=== PATIENT | female | born 1970 | race Two or more races ===

== ENCOUNTER 2021-06-29 09:05 | Inpatient (IN) | payer OTHER ==
[~2021-06-29] VITALS: Ht 157.5 cm; Wt 80.3 kg
--- NOTE | 2021-06-29 09:09 | NUR ---
TO ER BED 3, C/O CHEST PAIN SINCE LAST NIGHT, NOW IT'S MORE OF A TIGHTNESS PER PATIENT DESCRIPTION, NO SOB COMPLAIN, AAOX3, BREATHING EVEN AND NON LABORED, CONNECTED TO MONITOR
[2021-06-29 09:36] LABS: BASOPHILS % (AUTO) 0.6 % (0.0-2.0); EOSINOPHILS % (AUTO) 2.4 % (0.0-6.0); HEMATOCRIT 40 % (33-45); HEMOGLOBIN 13.5 g/dL (11.5-14.8); LYMPHOCYTES # (AUTO) 1.7 K/uL (0.8-4.8); LYMPHOCYTES % (AUTO) 30.7 % (20.0-44.0); MEAN CORPUSCULAR HGB CONC 34 g/dl (31.0-36.0); MEAN CORPUSCULAR VOLUME 90 fL (82-100); MONOCYTES # (AUTO) 0.4 K/uL (0.1-1.30); MONOCYTES % (AUTO) 6.4 % (2.0-12.0); NEUTROPHILS # (AUTO) 3.3 K/uL (1.8-8.9); NEUTROPHILS % (AUTO) 59.9 % (43.0-81.0); PLATELET COUNT (AUTO) 275 K/uL (150-450); RED BLOOD CELL COUNT(AUTO) 4.42 MIL/uL (4.0-5.2); WHITE BLOOD COUNT (AUTO) 5.5 K/uL (4.3-11.0)
--- NOTE | 2021-06-29 09:37 | NUR ---
MOVE SHEET SUBMITTED AND CALLED FOR TELE BED.
--- NOTE | 2021-06-29 09:37 | NUR ---
MOVE SHEET SUBMITTED AND CALLED FOR TELE BED.
[2021-06-29 10:07] LABS: CALCIUM, SERUM 10.4 mg/dL (8.5-10.1); CARBON DIOXIDE 26 mmol/L (21-32); CHLORIDE 106 mmol/L (98-107); CREATININE 0.9 mg/dL (0.6-1.3); GLUCOSE 142 mg/dL (74-106); POTASSIUM 3.7 mmol/L (3.5-5.1); SODIUM SERUM 141 mmol/L (136-145); UREA NITROGEN, BLOOD 15 mg/dL (7-18)
[2021-06-29 10:19] LABS: ALANINE AMINOTRANSFERASE 63 U/L (12-78); ALBUMIN 3.6 g/dL (3.4-5.0); ALKALINE PHOSPHATASE 85 U/L (46-116); ASPARTATE AMINOTRANSFERASE 32 U/L (15-37); BILIRUBIN,DIRECT 0.1 mg/dL (0.0-0.2); BILIRUBIN,TOTAL 0.3 mg/dL (0.2-1.0); TOTAL PROTEIN, SERUM 7.5 g/dL (6.4-8.2)
--- NOTE | 2021-06-29 11:48 | NUR ---
Polly boo in [facility] - 06/29/21 at 1155 by AMANDEEP ROOM [id number]
--- NOTE | 2021-06-29 11:48 | NUR ---
Polly boo in [facility] - 06/29/21 at 1155 by AMANDEEP ROOM [id number]
--- NOTE | 2021-06-29 11:55 | NUR ---
WAITING FOR BED
--- NOTE | 2021-06-29 11:55 | NUR ---
WAITING FOR BED
--- NOTE | 2021-06-29 12:52 | NUR ---
PT LAYING IN BED. AAOX4, BREATHING EVEN AND UNLABORED. WILL CONTINUE TO MONITOR.
--- NOTE | 2021-06-29 12:52 | NUR ---
PT LAYING IN BED. AAOX4, BREATHING EVEN AND UNLABORED. WILL CONTINUE TO MONITOR.
[2021-06-29] MEDS ORDERED: MAGNESIUM HYDROXIDE 30 ML UDC PO PRN (13:30)
[2021-06-29] MEDS ORDERED: ASPIRIN EC 81 MG TABLET.DR PO SCH (13:30)
[2021-06-29] MEDS ORDERED: MORPHINE SULFATE INJ 2 MG/ML DISP.SYRIN IV PRN (13:30)
[2021-06-29] MEDS ORDERED: NITROGLYCERIN 0.4 MG/TAB BOTTLE SL PRN (13:30)
[2021-06-29] MEDS ORDERED: ONDANSETRON HCL/PF 4 MG/2 ML VIAL IVP PRN (13:30)
[2021-06-29] MEDS ORDERED: HYDROCODONE/APAP 5/325MG TABLET PO PRN (13:30)
[2021-06-29] MEDS ORDERED: MAG HYDROX/AL HYDROX/SIMETH 30 ML UDC PO PRN (13:30)
[2021-06-29] MEDS ORDERED: ACETAMINOPHEN 325 MG TABLET PO PRN (13:30)
--- NOTE | 2021-06-29 13:41 | NUR ---
PT LYING IN BED, VS STABLE, WILL CONTINUE TO MONITOR
--- NOTE | 2021-06-29 13:41 | NUR ---
PT LYING IN BED, VS STABLE, WILL CONTINUE TO MONITOR
[2021-06-29] MEDS ORDERED: ASPIRIN 81 MG TAB.CHEW ONE (14:07)
[2021-06-29] MEDS: ASPIRIN 81 MG TAB.CHEW PO SCH (14:11)
--- NOTE | 2021-06-29 15:12 | NUR ---
PT LAYIGN IN BED, AAOX4, BREATHING EVEN AND UNLABORED. NO NEW COMPLAINTS. VS STABLE
--- NOTE | 2021-06-29 15:12 | NUR ---
PT LAYIGN IN BED, AAOX4, BREATHING EVEN AND UNLABORED. NO NEW COMPLAINTS. VS STABLE
--- NOTE | 2021-06-29 17:08 | NUR ---
PT AMBULATED TO RESTROOM
--- NOTE | 2021-06-29 17:08 | NUR ---
PT AMBULATED TO RESTROOM
--- NOTE | 2021-06-29 17:12 | NUR ---
PT RETURNED TO BED FROM RESTROOM. VS STABLE
--- NOTE | 2021-06-29 17:12 | NUR ---
PT RETURNED TO BED FROM RESTROOM. VS STABLE
[2021-06-29] MEDS ORDERED: METOPROLOL TARTRATE 50 MG TABLET ONE (17:52)
[2021-06-29] MEDS: METOPROLOL TARTRATE 50 MG TABLET PO SCH (18:02)
--- NOTE | 2021-06-29 19:09 | NUR ---
VS STABLE, NO PRESENT COMPLAINTS
--- NOTE | 2021-06-29 19:09 | NUR ---
VS STABLE, NO PRESENT COMPLAINTS
--- NOTE | 2021-06-29 19:48 | NUR ---
ROOM: [facility] TELE
--- NOTE | 2021-06-29 19:48 | NUR ---
ROOM: [facility] TELE
--- NOTE | 2021-06-29 20:54 | NUR ---
REPORT GIVEN TO BRIAN
--- NOTE | 2021-06-29 20:54 | NUR ---
REPORT GIVEN TO BRIAN
[2021-06-29 21:00] VITALS: BP 138/78
--- NOTE | 2021-06-29 21:00 | NUR ---
TECHNICAL COORDINATORTRAVELING SALES REPRESENTATIVE NOTES RECEIVED ON BED A/O X4,BREATHING REGULAR,NOT IN ANY FORM OF DISTRESS,DX-CHEST PAIN,WITH KNOWN ALLERGY TO PENICILLIN,WITH LEFT ARM SALINE LOCK INTACT AND PATENT.VACCINATED WITH COVID TWICE,NO BOOSTER YET.CHEST PAIN DULL AT THE MOMENT,NO SKIN ISSUES,CALL LIGHT IN REACH,NEEDS ANTICIPATED
--- NOTE | 2021-06-29 21:00 | NUR ---
CAM MAKERMARKETING REPS SPORTS AND ENTERTAINMENT NOTES RECEIVED ON BED A/O X4,BREATHING REGULAR,NOT IN ANY FORM OF DISTRESS,DX-CHEST PAIN,WITH KNOWN ALLERGY TO PENICILLIN,WITH LEFT ARM SALINE LOCK INTACT AND PATENT.VACCINATED WITH COVID TWICE,NO BOOSTER YET.CHEST PAIN DULL AT THE MOMENT,NO SKIN ISSUES,CALL LIGHT IN REACH,NEEDS ANTICIPATED
--- NOTE | 2021-06-29 21:06 | NUR ---
PT TRANSPORTED TO ROOM 314 ON TIRE CENTER SUPERVISOR PER ACLS PROTOCOL
--- NOTE | 2021-06-29 21:06 | NUR ---
PT TRANSPORTED TO ROOM 314 ON HOME CARE ASSOCIATE PER ACLS PROTOCOL
[2021-06-29] MEDS ORDERED: ZOLPIDEM TARTRATE 5 MG TABLET PO PRN (22:00)
--- NOTE | 2021-06-29 22:53 | NUR ---
DATA PROCESSING AUDITOR NOTES C/O HEADACHE,TYLENOL 650MG PO GIVEN PER PATIENT REQUEST.
--- NOTE | 2021-06-29 22:53 | NUR ---
MIXED CROP AND LIVESTOCK FARMER NOTES C/O HEADACHE,TYLENOL 650MG PO GIVEN PER PATIENT REQUEST.
[2021-06-30] VITALS: BP 113/66
[2021-06-30] MEDS: METOPROLOL TARTRATE 50 MG TABLET PO SCH ×3 (00:25→13:05)
[2021-06-30 05:53] LABS: BASOPHILS % (AUTO) 0.7 % (0.0-2.0); EOSINOPHILS % (AUTO) 3.4 % (0.0-6.0); HEMATOCRIT 39 % (33-45); HEMOGLOBIN 13.2 g/dL (11.5-14.8); LYMPHOCYTES # (AUTO) 2.2 K/uL (0.8-4.8); LYMPHOCYTES % (AUTO) 36.3 % (20.0-44.0); MEAN CORPUSCULAR HGB CONC 34 g/dl (31.0-36.0); MEAN CORPUSCULAR VOLUME 90 fL (82-100); MONOCYTES # (AUTO) 0.5 K/uL (0.1-1.30); MONOCYTES % (AUTO) 8.5 % (2.0-12.0); NEUTROPHILS # (AUTO) 3.1 K/uL (1.8-8.9); NEUTROPHILS % (AUTO) 51.1 % (43.0-81.0); PLATELET COUNT (AUTO) 299 K/uL (150-450); RED BLOOD CELL COUNT(AUTO) 4.35 MIL/uL (4.0-5.2); WHITE BLOOD COUNT (AUTO) 6.1 K/uL (4.3-11.0)
[2021-06-30 06:55] LABS: CALCIUM, SERUM 9.9 mg/dL (8.5-10.1); MAGNESIUM 2.7 mg/dL (1.8-2.4); PHOSPHORUS 4.4 mg/dL (2.5-4.9); POTASSIUM 4.5 mmol/L (3.5-5.1)
[2021-06-30 07:10] LABS: THYROID STIMULATING HORMONE 3.659 uIU/mL (0.358-3.74)
[2021-06-30] MEDS ORDERED: PANTOPRAZOLE 40 MG TABLET.DR PO SCH (07:30)
--- NOTE | 2021-06-30 07:56 | NUR ---
INFORMATION TECHNOLOGY PROJECT MANAGER OPENING NOTES RECEIVED PT IN BED, AWAKE. ALERT AND ORIENTED X4 . NO S/SX OF DISTRESS NOTED. NO SOB. BREATHING EVEN AND UNLABORED, TOLERATING WELL ON ROOM AIR. IV ACCESS ON R ARM INTACT AND PATENT. PT WITH SR 62 READING ON EXTERNAL TRAFFIC REPORTER AT THIS TIME. SAFETY MEASURE IN PLACE WITH BED LOCKED AND IN LOWEST POSITION, SR UP X2, CALL LIGHT PLACED WITHIN EASY REACH. WILL CONTINUE TO MONITOR PT FOR CHANGES IN CONDITION.
--- NOTE | 2021-06-30 07:56 | NUR ---
ROLLER HAND OPENING NOTES RECEIVED PT IN BED, AWAKE. ALERT AND ORIENTED X4 . NO S/SX OF DISTRESS NOTED. NO SOB. BREATHING EVEN AND UNLABORED, TOLERATING WELL ON ROOM AIR. IV ACCESS ON R ARM INTACT AND PATENT. PT WITH SR 62 READING ON EXTERNAL SILK OPENER AT THIS TIME. SAFETY MEASURE IN PLACE WITH BED LOCKED AND IN LOWEST POSITION, SR UP X2, CALL LIGHT PLACED WITHIN EASY REACH. WILL CONTINUE TO MONITOR PT FOR CHANGES IN CONDITION.
[2021-06-30] MEDS: ASPIRIN 81 MG TAB.CHEW PO SCH (08:25)
[2021-06-30] MEDS ORDERED: NITROGLYCERIN 0.4 MG/TAB BOTTLE SL ONE (09:00)
--- NOTE | 2021-06-30 09:06 | NUR ---
RN NOTE PT WAS PICKED UP BY SAMUEL LEE FOR CT ANGIOGRAM AT THIS TIME VIA WHEELCHAIR.
--- NOTE | 2021-06-30 09:06 | NUR ---
RN NOTE PT WAS PICKED UP BY SAMUEL LEE FOR CT ANGIOGRAM AT THIS TIME VIA WHEELCHAIR.
[2021-06-30] MEDS: METOPROLOL TARTRATE INJ 5 MG/5 ML AMPUL IVP PRN ×7 (09:20→09:50)
[2021-06-30] MEDS ORDERED: NITROGLYCERIN 0.4 MG/TAB BOTTLE ONE (09:22)
[2021-06-30] MEDS ORDERED: CT SWABBABLE VALVE TRANS SET 1 EA INFUS.SET MC ONE (09:22)
[2021-06-30] MEDS ORDERED: IOHEXOL-350 100 ML VIAL IV ONE (09:22)
[2021-06-30] MEDS ORDERED: METOPROLOL TARTRATE INJ 5 MG/5 ML AMPUL ONE ×3 (09:22→09:38)
[2021-06-30 09:23] VITALS: BP 117/70
[2021-06-30] MEDS ORDERED: IV NS 0.9% 250 ML IV ONE (09:23)
--- NOTE | 2021-06-30 09:51 | NUR ---
RN NOTES: Post CTA: patient able to tolerate the procedure. Metoprolol 35mg IVP total given. Patient sent back to patient room in stable condition.
--- NOTE | 2021-06-30 09:51 | NUR ---
RN NOTES: Post CTA: patient able to tolerate the procedure. Metoprolol 35mg IVP total given. Patient sent back to patient room in stable condition.
[2021-06-30 12:00] VITALS: BP 120/74
[2021-06-30 13:05] VITALS: BP 120/74
--- NOTE | 2021-06-30 16:24 | NUR ---
SENIOR PRODUCT DEVELOPMENT SCIENTIST NOTE PT WAS DISCHARGED WITH STABLE VITALS. NO S/SX OF DISTRESS NOTED. NO SOB. BREATHING EVEN AND UNLABORED. IV ACCESS REMOVED. ID BAND REMOVED. DISCHARGE INSTRUCTIONS REVIEWED WITH PATIENT AND SIGNED BY PATIENT. ALL QUESTIONS ANSWERED, VERBALIZED UNDERSTANDING. KP [place] ACCOMPANIED PT OUT THE UNIT VIA WHEELCHAIR AT THIS TIME. ALL BELONGINGS ACCOUNTED FOR AND SIGNED FORM.
== END 2021-06-30 16:30 | disposition home or self-care (01) | DRG 880 ==
LOC: ER 09:09 → TRANSITION 11:49 → TELE 19:52
DX: F41.9 Anxiety disorder, unspecified (principal); I10 Essential (primary) hypertension; E66.9 Obesity, unspecified; Z68.32 Body mass index [BMI] 32.0-32.9, adult; E83.52 Hypercalcemia; Z20.822 Contact with and (suspected) exposure to COVID-19
CPT/HCPCS: 36415; 71045-TC; 75574; 80048-TC; 80061-TC; 80076-TC; 83735-TC; 83880; 84100-TC; 84443-TC; 84484-TC; 84702-TC; 85025-TC; 87081-TC; 93307-TC; C9803; G0378; J2270; J3490; J7050; Q9967